=== PATIENT | male | born 2000 | race Hispanic/Latino ===

== ENCOUNTER 2023-03-01 21:32 | Emergency (ER) | payer OTHER, SELFPAY | END 2023-03-01 23:37 | disposition home or self-care (01) | LOC: ERS 21:32 | DX: S09.90XA Unspecified injury of head, initial encounter (principal); Y93.71 Activity, boxing | CPT/HCPCS: 70450 ==

== ENCOUNTER 2023-12-24 19:57 | Emergency (ER) | payer BC ==
[2023-12-24] MEDS ORDERED: Dexamethasone 4 MG TAB ONE (23:21)
[2023-12-24] MEDS ORDERED: Boostrix 0.5 ML (Tdap) VIAL (>/=7 yrs of age) ONE (23:21)
== END 2023-12-25 00:35 | disposition home or self-care (01) ==
LOC: ERS 19:57
DX: S71.132A Puncture wound without foreign body, left thigh, initial encounter (principal); B34.9 Viral infection, unspecified; Z23 Encounter for immunization; X58.XXXA Exposure to other specified factors, initial encounter
CPT/HCPCS: 71045; 90471; 90715; J8540